=== PATIENT | male | born 1960 | race Caucasian/White ===

== ENCOUNTER 2018-12-17 14:02 | Emergency (ER) | payer OTHER ==
[~2018-12-17] VITALS: Ht 187.9 cm; Wt 113.4 kg
[~2018-12-17 14:02] MED LIST: AMOXICILLIN500 MG PO; ANAPROX DS550 MG PO; ANUSOL-HC25 MG R; Anusol Hc,Anuco25 MG PO; BACTRIM DS 8001 TA1 PO; BACTROBAN OINT22 GM PO; CEPHALEXIN500 M1 PO; COLACE100 MG PO; COUMADIN10 M1 PO; COUMADIN2.5 M1 PO; HYDROCODONE BIT1 T11 PO; IBU800 MG PO; KEFLEX500 M1 PO; NAPROSYN500 MG PO; OXYCODONE AND A1 TA9 PO; PERCOCET 325 MG1 TA2 PO; TRAMADOL HCL50 MG PO; VICODIN 5/500 505 MG PO
[2018-12-17 14:39] LABS: BASO % 0.4 % (0.0-1.0); EOS # 0.1 10*3/uL (0.0-0.4); EOS % 1.1 % (1.0-4.0); HEMATOCRIT 43.8 % (42.0-52.0); LYMPH # 2.5 10*3/uL (1.3-4.4); LYMPH % 30.3 % (27.0-41.0); MEAN CELL VOLUME 91.3 fl (80.0-94.0); MEAN CORPUSCULAR HGB 31.3 pg (27.0-31.0); MEAN CORPUSCULAR HGB CONC 34.2 g/dl (33.0-37.0); MEAN PLATELET VOLUME 10.5 fl (9.6-12.3); MONO # 0.8 10*3/uL (0.1-1.0); NEUT # 4.9 10*3/uL (2.3-7.9); PLATELET COUNT AUTOMATED 169 10*3/uL (130-400); RED CELL DISTRI WIDTH 12.4 % (0-14.5); WHITE BLOOD COUNT 8.4 10*3/uL (4.8-10.8)
[2018-12-17 14:53] LABS: ALBUMIN 3.3 gm/dl (3.1-4.5); ALKALINE PHOSPHATASE 87 U/L (45-117); BUN 17 mg/dl (7-24); CHLORIDE 108 mmol/L (98-107); LIPASE 61 U/L (73-393); POTASSIUM 3.9 mmol/L (3.5-5.1); SGOT/AST 12 IU/L (3-35); SGPT/ALT 22 U/L (12-78); SODIUM 142 mmol/L (136-145); TOTAL PROTEIN 7.2 gm/dL (6.4-8.2)
[2018-12-29] MEDS ORDERED: NORCO 5-325 TA1 EACH PO (10:27)
== END 2018-12-17 18:01 | disposition home or self-care (01) ==
LOC: ED 14:02
PROVIDERS: Nurse Practitioner Family
DX: K42.9 Umbilical hernia without obstruction or gangrene (principal)

== ENCOUNTER 2020-02-02 15:40 | Emergency (ER) | payer OTHER ==
[~2020-02-02] VITALS: Ht 187.9 cm; Wt 113.4 kg
[~2020-02-02 15:40] MED LIST changes: +NORCO 5-325 TA1 EACH PO
[2020-02-02] MEDS ORDERED: SEPTDS PO (16:51)
[2020-02-02] MEDS ORDERED: CEPHALEXIN500 M1 PO (16:51)
== END 2020-02-02 17:07 | disposition home or self-care (01) ==
LOC: ED 15:40
DX: L02.413 Cutaneous abscess of right upper limb (principal)